=== PATIENT | female | born 2000 ===

== ENCOUNTER 2019-01-31 03:16 | Emergency (ER) | payer OTHER ==
[2019-01-31] MEDS ORDERED: Diazepam 5 MG TAB ONE (03:46)
[2019-01-31] MEDS ORDERED: Ketorolac Tromethamine 60 MG/2 ML VIAL ONE (03:46)
[2019-01-31 04:01] LABS: Bilirubin Negative (Negative); Blood, Urine Negative (Negative); Clarity Clear (Clear); Glucose, Urine (Dipstick) Negative (Negative); Leukocyte Negative (Negative); Nitrite Negative (Negative); Protein, Urine (Dipstick) Negative (Neg-Trace); Urobilinogen 0.2 mg/dL (0.2-1.0)
[2019-01-31 04:05] LABS: Pregnancy Test - Urine (BHCG) Negative (Negative); Pregu Control Background? CLEAR/WHITE (CLR/WHITE); Pregu Control Bar Appear? YES (CONTROL BAR)
--- NOTE | 2019-01-31 08:22 | CT ---
CT LUMBAR SPINE NONCONTRAST: Date: 01/31/19 INDICATION: Back pain for 2 weeks. FINDINGS: Vertebral body heights and alignment are maintained. Within the L5 segment, there are bilateral pars defects with surrounding sclerosis. No associated spondylolisthesis. Contents of the vertebral canal are limited in assessment on the basis of noncontrast technique. IMPRESSION: 1. Bilateral pars defects of L5 without significant, associated spondylolisthesis. 2. Maintained vertebral body heights and alignment of lumbar spine. 3. As clinically necessary, follow-up imaging may be obtained with MRI lumbar spine if there are marley rologic deficits related to the lumbar spine. POS: SUSANA
== END 2019-01-31 05:25 | disposition home or self-care (01) ==
LOC: SCSER 03:16
DX: M54.5 Low back pain (principal); F41.9 Anxiety disorder, unspecified; V00.131A Fall from skateboard, initial encounter
CPT/HCPCS: 72131; 81003; 81025; 96372; J1885